=== PATIENT | female | born 1960 | race Caucasian/White ===

== ENCOUNTER 2019-10-30 16:43 | Emergency (ER) | payer MEDICARE, BC ==
[~2019-10-30] VITALS: Ht 154.9 cm; Wt 95.3 kg
--- NOTE | 2019-10-30 17:50 | NUR ---
PATIENT WAS SEEN BY . XRAY DONE. DC, RX (INCLUDING PRECAUTTIONS) AND F/U INSTRUCTIONS GIVEN AND EXPLAINED TO PATIENT WHO STATES SHE UNDERSTANDS ALL INSTRUCTIONS.
== END 2019-10-30 17:51 | disposition home or self-care (01) ==
LOC: ER 16:48
DX: S93.601A Unspecified sprain of right foot, initial encounter (principal); J45.909 Unspecified asthma, uncomplicated; K21.9 Gastro-esophageal reflux disease without esophagitis; X50.1XXA Overexertion from prolonged static or awkward postures, initial encounter; Y93.89 Activity, other specified; Y92.89 Other specified places as the place of occurrence of the external cause; Y99.8 Other external cause status
CPT/HCPCS: 73630; A4663

== ENCOUNTER 2023-03-15 14:33 | Emergency (ER) | payer MEDICARE, BC ==
[~2023-03-15] VITALS: Ht 154.9 cm; Wt 95.3 kg
[2023-03-15 15:59] LABS: HEMATOCRIT 37.3 % (31.2-41.9); MEAN CORPUSCULAR HEMOGLOBIN 31.8 uug (24.7-32.8); MEAN CORPUSCULAR VOLUME 95.4 fL (75.5-95.3); PLATELET COUNT (AUTO) 373 K/uL (179-408)
[2023-03-15 16:28] LABS: ALANINE AMINOTRANSFERASE 23 U/L (14-59); ALKALINE PHOSPHATASE 72 U/L (50-136); ASPARTATE AMINOTRANSFERASE 17 U/L (15-37); CARBON DIOXIDE 28 mmol/L (21-32); CHLORIDE 104 mmol/L (98-107); CREATININE 1.1 mg/dL (0.6-1.3); GLUCOSE 94 mg/dL (74-106); POTASSIUM 4.3 mmol/L (3.5-5.1); TOTAL PROTEIN, SERUM 7.5 g/dL (6.4-8.2); UREA NITROGEN, BLOOD 13 mg/dL (7-18)
[2023-03-15 17:17] LABS: BILIRUBIN,DIRECT 0.1 mg/dL (0.0-0.2); BILIRUBIN,TOTAL 0.4 mg/dL (0.2-1.0)
[2023-03-15 17:48] VITALS: BP 129/88
--- NOTE | 2023-03-15 17:48 | NUR ---
Patient discharged to home by Dr England in stable condition with brisk steady gait. Written and verbal after care instructions given to patient. Patient verbalized understanding and compliance of instructions. Stressed follow up with primary doctor and helicopter utility aircrewman or return to ER for worsening s/s.
== END 2023-03-15 17:49 | disposition home or self-care (01) ==
LOC: ER 14:33
DX: I89.0 Lymphedema, not elsewhere classified (principal); J45.909 Unspecified asthma, uncomplicated; K21.9 Gastro-esophageal reflux disease without esophagitis; R07.89 Other chest pain
CPT/HCPCS: 36415; 71045; 84484; 85025; A4663

== ENCOUNTER 2023-12-03 13:15 | Emergency (ER) | payer MEDICARE, BC ==
[~2023-12-03] VITALS: Ht 154.9 cm; Wt 81.6 kg
[2023-12-03] MEDS ORDERED: ATOR40TA PO (13:59)
[2023-12-03] MEDS ORDERED: IRON (13:59)
[2023-12-03] MEDS ORDERED: DILT180T11 PO (13:59)
[2023-12-03] MEDS ORDERED: ALPR0.5T8 PO (13:59)
[2023-12-03] MEDS ORDERED: ASCO500C18 PO (13:59)
[2023-12-03] MEDS ORDERED: BUPR300T52 PO (13:59)
[2023-12-03] MEDS ORDERED: CHOL500062 PO (13:59)
[2023-12-03] MEDS ORDERED: OMEP40CA21 PO (13:59)
[2023-12-03] MEDS ORDERED: ZOLP5TAB2 PO (13:59)
[2023-12-03] MEDS ORDERED: METH20TA PO (13:59)
[2023-12-03] MEDS ORDERED: ONDANSETRON 4 MG/2 ML VIAL ONE (14:24)
[2023-12-03] MEDS ORDERED: HYDROMORPHONE 1 MG/1 ML DISP.SYRIN ONE ×2 (14:24→16:18)
[2023-12-03 14:39] LABS: BASOPHILS % (AUTO) 0.6 % (0.0-2.0); EOSINOPHILS # (AUTO) 0.2 K/uL (0.0-0.7); EOSINOPHILS % (AUTO) 3.2 % (0.0-7.0); HEMATOCRIT 35.1 % (31.2-41.9); HEMOGLOBIN 11.8 g/dL (10.9-14.3); LYMPHOCYTES # (AUTO) 2.1 K/uL (0.8-4.8); MEAN CORPUSCULAR HEMOGLOBIN 32.4 uug (24.7-32.8); MEAN CORPUSCULAR HGB CONC 34 g/dL (32.3-35.6); MONOCYTES # (AUTO) 0.4 K/uL (0.1-1.30); MONOCYTES % (AUTO) 7.7 % (0.0-11.0); NEUTROPHILS # (AUTO) 2.6 K/uL (1.8-8.9); NEUTROPHILS % (AUTO) 49.5 % (38.5-71.5); PLATELET COUNT (AUTO) 386 K/uL (179-408); RED BLOOD CELL COUNT(AUTO) 3.65 MIL/uL (3.63-4.92); RED CELL DISTRIBUTION WIDTH 13.4 % (12.3-17.7); WHITE BLOOD COUNT (AUTO) 5.3 K/uL (3.8-11.8)
[2023-12-03 15:01] LABS: ALANINE AMINOTRANSFERASE 19 U/L (14-59); ALBUMIN 3.2 g/dL (3.4-5.0); ALKALINE PHOSPHATASE 51 U/L (50-136); ASPARTATE AMINOTRANSFERASE 10 U/L (15-37); BILIRUBIN,DIRECT 0.1 mg/dL (0.0-0.2); BILIRUBIN,TOTAL 0.2 mg/dL (0.2-1.0); CALCIUM 9.1 mg/dL (8.5-10.1); CARBON DIOXIDE 30 mmol/L (21-32); CHLORIDE 107 mmol/L (98-107); GLUCOSE 98 mg/dL (74-106); POTASSIUM 4.3 mmol/L (3.5-5.1); SODIUM SERUM 144 mmol/L (136-145); TOTAL PROTEIN, SERUM 6.5 g/dL (6.4-8.2); UREA NITROGEN, BLOOD 12 mg/dL (7-18)
[2023-12-03 15:04] LABS: DIFFERENTIAL COMMENT 1
[2023-12-03] MEDS: IV NORMAL SALINE 1000 ML BAG IV ONE (15:05)
[2023-12-03] MEDS: ONDANSETRON 4 MG/2 ML VIAL IV ONE (15:12)
[2023-12-03] MEDS: HYDROMORPHONE 1 MG/1 ML DISP.SYRIN IV ONE ×2 (15:13→16:24)
[2023-12-03] MEDS ORDERED: IOHEXOL 300MG/ML 100 ML INFUS..BTL ONE (15:30)
[2023-12-03] MEDS ORDERED: SWABABLE VALVE TRANSFER SET EA MC ONE (15:30)
[2023-12-03] MEDS ORDERED: IV NORMAL SALINE 250 ML IV ONE (15:30)
[2023-12-03 17:13] LABS: *BILIRUBIN,URIN NEGATIVE (NEGATIVE); *BLOOD, URINE NEGATIVE (NEGATIVE); *CLARITY,URINE CLEAR (CLEAR); *COLOR,URINE YELLOW (YELLOW); *KETONES,URINE NEGATIVE (NEGATIVE); *PROTEIN,URINE NEGATIVE (NEGATIVE); *UROBILINOGEN,URINE 0.2 E.U./dl (NORMAL); LEUKOCYTE ESTERASE ,URINE NEGATIVE (NEGATIVE); NITRITE, URINE NEGATIVE (NEGATIVE); UGLUCOSE NEGATIVE (NEGATIVE)
[2023-12-03] MEDS ORDERED: CYANOCOBALAMIN 1000 MCG/ML VIAL ONE (18:33)
[2023-12-03] MEDS: CYANOCOBALAMIN 1000 MCG/ML VIAL IM ONE (18:44)
[2023-12-03] MEDS ORDERED: MAG HYDROX/AL HYDROX/SIMETH 30 ML LIQUID UDC ONE (18:45)
[2023-12-03] MEDS: MAGNESIUM HYDROXIDE 30 ML LIQUID UDC PO ONE (18:48)
[2023-12-03] MEDS ORDERED: CYAN10006 IM (19:09)
[2023-12-03] MEDS ORDERED: HYDR-3980 PO (19:09)
[2023-12-03] MEDS ORDERED: SYRI-29 MC (19:09)
[2023-12-03 19:25] VITALS: BP 144/81; O2SAT 95
== END 2023-12-03 19:26 | disposition home or self-care (01) ==
LOC: ER 13:17
DX: K59.00 Constipation, unspecified (principal); E53.8 Deficiency of other specified B group vitamins; R10.31 Right lower quadrant pain; J45.909 Unspecified asthma, uncomplicated; K21.9 Gastro-esophageal reflux disease without esophagitis; Z98.890 Other specified postprocedural states; Z79.899 Other long term (current) drug therapy
CPT/HCPCS: 99285; 74177; 96374; 71045; 96361; 96375; 80076; 80048; 81003; 82607; 85025; 85379; 84484; 36415; 93005; 96376; 96372; J3420; J2405; Q9967; J1170 ×2; J7040; A4606; A4663

== ENCOUNTER 2024-08-12 16:02 | Emergency (ER) | payer MEDICARE, BC ==
[~2024-08-12] VITALS: Ht 154.9 cm; Wt 76.7 kg
[~2024-08-12 16:02] MED LIST: ALPR0.5T8 PO; ASCO500C18 PO; ATOR40TA PO; BUPR300T52 PO; CHOL500062 PO; CYAN10006 IM; DILT180T11 PO; HYDR-3980 PO; IRON; METH20TA PO; OMEP40CA21 PO; SYRI-29 MC; ZOLP5TAB2 PO
[2024-08-12 17:58] LABS: BASOPHILS # (AUTO) 0.1 K/UL (0.0-0.2); BASOPHILS % (AUTO) 0.9 % (0.0-2.0); EOSINOPHILS # (AUTO) 0.1 K/uL (0.0-0.7); EOSINOPHILS % (AUTO) 1.9 % (0.0-7.0); HEMATOCRIT 30.3 % (31.2-41.9); HEMOGLOBIN 10.3 g/dL (10.9-14.3); LYMPHOCYTES # (AUTO) 2.2 K/uL (0.8-4.8); LYMPHOCYTES % (AUTO) 28.2 % (20.5-51.5); MEAN CORPUSCULAR HEMOGLOBIN 32.9 uug (24.7-32.8); MEAN CORPUSCULAR HGB CONC 34 g/dL (32.3-35.6); MEAN CORPUSCULAR VOLUME 96.6 fL (75.5-95.3); MONOCYTES # (AUTO) 0.7 K/uL (0.1-1.30); MONOCYTES % (AUTO) 8.5 % (0.0-11.0); NEUTROPHILS # (AUTO) 4.7 K/uL (1.8-8.9); NEUTROPHILS % (AUTO) 60.5 % (38.5-71.5); PLATELET COUNT (AUTO) 348 K/uL (179-408); RED BLOOD CELL COUNT(AUTO) 3.14 MIL/uL (3.63-4.92); WHITE BLOOD COUNT (AUTO) 7.8 K/uL (3.8-11.8)
[2024-08-12 18:01] LABS: DIFFERENTIAL COMMENT 1
[2024-08-12 18:08] LABS: CREATININE 1.1 mg/dL (0.6-1.3); POTASSIUM 4.4 mmol/L (3.5-5.1)
[2024-08-12 18:34] LABS: IRON, SERUM 27 ug/dL (50-175)
[2024-08-12] MEDS ORDERED: HYDR-3980 PO (19:39)
[2024-08-12] MEDS ORDERED: FERR325T23 PO (19:39)
[2024-08-12 20:18] VITALS: BP 145/72; O2SAT 100
== END 2024-08-12 20:00 | disposition home or self-care (01) ==
LOC: ER 16:04
DX: M79.652 Pain in left thigh (principal); D50.9 Iron deficiency anemia, unspecified; J45.909 Unspecified asthma, uncomplicated; K21.9 Gastro-esophageal reflux disease without esophagitis; Z85.41 Personal history of malignant neoplasm of cervix uteri; Z85.820 Personal history of malignant melanoma of skin; Z79.899 Other long term (current) drug therapy
CPT/HCPCS: 36415; 70030-TC; 73560; 83550; 85025; A4606; A4663